=== PATIENT | female | born 1995 | race Caucasian/White ===

== ENCOUNTER 2022-07-25 23:26 | Inpatient (IN) | payer OTHER ==
[2022-07-26] MEDS ORDERED: Sodium Chloride 0.9% 10 ML Syringe FLUSH PRN (00:11)
[2022-07-26] MEDS ORDERED: Lidocaine 1% 50 ML MDV INJECT ONE (00:11)
[2022-07-26] MEDS ORDERED: Ondansetron 4 MG/2 ML SDV IVPUSH PRN (00:11)
[2022-07-26] MEDS ORDERED: Nalbuphine HCl 10 MG/ 1ML Amp IVPUSH PRN (00:11)
[2022-07-26] MEDS ORDERED: Oxytocin/Lactated Ringers 10 UNIT/1,000 ML BAG IV SCH (00:15)
[2022-07-26] MEDS: Lactated Ringers 1,000 ML IV SCH ×2 (08:35→20:15)
[2022-07-26] MEDS: Oxytocin/Lactated Ringers 10 UNIT/1,000 ML BAG IV SCH ×2 (08:40→20:14)
[2022-07-26] MEDS ORDERED: ePHEDrine 50 MG/ML SDV IVPUSH PRN (19:32)
[2022-07-26] MEDS ORDERED: diphenhydrAMINE 50 MG/ML SDV IVPUSH PRN (19:32)
[2022-07-26] MEDS: Bupivacaine/fentaNYL/NS 100 ML Bag EPIDUR PRN (20:10)
[2022-07-26] MEDS: fentaNYL 100 MCG/2 ML SDV EPIDUR PRN (20:10)
[2022-07-26] MEDS: Sodium Chloride 0.9% 10 ML Syringe FLUSH SCH (23:30)
[2022-07-27] MEDS ORDERED: Lidocaine 1% 10 ML MDV ONE
[2022-07-27] MEDS: Bupivacaine/fentaNYL/NS 100 ML Bag EPIDUR PRN (02:38)
[2022-07-27] MEDS ORDERED: Dexmedetomidine 200 MCG/2 ML SDV ONE (03:52)
[2022-07-27] MEDS: fentaNYL 100 MCG/2 ML SDV EPIDUR PRN (04:05)
[2022-07-27] MEDS ORDERED: Docusate Sodium 100 MG Cap PO PRN (05:27)
[2022-07-27] MEDS ORDERED: Witch Hazel Medicated Pads 40/Jar TOP PRN (05:27)
[2022-07-27] MEDS ORDERED: Ibuprofen 600 MG Tab PO PRN (05:27)
[2022-07-27] MEDS ORDERED: Benzocaine/Menthol 20%-0.5% Spray 78 GM Cannister TOP PRN (05:27)
[2022-07-27] MEDS ORDERED: Acetaminophen 325 MG Tab PO PRN (05:27)
[2022-07-27] MEDS: Levothyroxine 75 MCG Tab PO SCH (09:02)
[2022-07-27] MEDS: Prenatal Multivitamin with Calcium/Folic Acid/Iron Tab PO SCH (09:05)
[2022-07-28] MEDS: Levothyroxine 75 MCG Tab PO SCH (06:42)
[2022-07-28] MEDS: Prenatal Multivitamin with Calcium/Folic Acid/Iron Tab PO SCH (08:25)
== END 2022-07-28 16:20 | disposition home or self-care (01) | DRG 807 ==
LOC: JD.OBCHECK 23:26 → JD.OB 23:29 → JD.OBCHECK 07-26 00:12 → JD.OB 07-26 00:32 → OBSVTOIN 07-27 05:00 → JD.OB 07-27 05:01
PROVIDERS: ADMIT Obstetrics & Gynecology; ATTEND Obstetrics & Gynecology
PROC: 10E0XZZ Delivery of Products of Conception, External Approach (ICD-10-PCS; principal; 2022-07-27)
PROC: 0UQKXZZ Repair Hymen, External Approach (ICD-10-PCS; 2022-07-27)
PROC: 3E0R3BZ Introduction of Anesthetic Agent into Spinal Canal, Percutaneous Approach (ICD-10-PCS; 2022-07-27)
PROC: 00HU33Z Insertion of Infusion Device into Spinal Canal, Percutaneous Approach (ICD-10-PCS; 2022-07-27)
PROC: 10H07YZ Insertion of Other Device into Products of Conception, Via Natural or Artificial Opening (ICD-10-PCS; 2022-07-27)
PROC: 0HQ9XZZ Repair Perineum Skin, External Approach (ICD-10-PCS; 2022-07-27)
DX: O42.02 Full-term premature rupture of membranes, onset of labor within 24 hours of rupture (principal); Z37.0 Single live birth; O70.0 First degree perineal laceration during delivery; Z3A.38 38 weeks gestation of pregnancy; O99.284 Endocrine, nutritional and metabolic diseases complicating childbirth; E03.9 Hypothyroidism, unspecified
CPT/HCPCS: 36415; 51702; 59025; 59409; 85025; 86592; 86850; 86900; 86901; A9270-GY; J2590; J3010; J7120